=== PATIENT | male | born 1940 | race Caucasian/White ===

== ENCOUNTER 2018-05-06 12:06 | Emergency (ER) | payer SELFPAY ==
[2018-05-06] MEDS: DIPHTH/TET/ACEL PERTUSS (ADULT) 0.5 ML VIAL IM* (14:16)
[2018-05-06] MEDS: BACITRACIN 0.9 GM OINT TOP (14:57)
[2018-05-06] MEDS: BACITRACIN 0.5%/ZINC 28.35 GM OINT TOP (14:57)
== END 2018-05-06 15:57 | disposition home or self-care (01) ==
LOC: FTE 12:06
DX: S81.811A Laceration without foreign body, right lower leg, initial encounter (principal); I10 Essential (primary) hypertension; W54.0XXA Bitten by dog, initial encounter; Y92.9 Unspecified place or not applicable; Z23 Encounter for immunization; Z87.891 Personal history of nicotine dependence
CPT/HCPCS: 90471; 90715; 99283-25

== ENCOUNTER 2018-05-09 11:07 | Emergency (ER) | payer SELFPAY | END 2018-05-09 12:28 | disposition home or self-care (01) | LOC: FTE 11:07 | DX: Z48.01 Encounter for change or removal of surgical wound dressing (principal); I10 Essential (primary) hypertension | CPT/HCPCS: 99281 ==